=== PATIENT | male | born 1960 | race Caucasian/White ===

== ENCOUNTER 2020-05-09 13:04 | Day surgery (SDC) | payer OTHER ==
[~2020-05-09] VITALS: Ht 188 cm; Wt 136.1 kg
--- NOTE | ~2020-05-09 | O ---
[facility] [place] [address] OPERATIVE REPORT Name: GERTRUDE STOREY Room #: 150-7 [facility]..#: [id number] Admission: 05/09/20 Attend Phys: Chirag Pop MD Discharge: Date of : 58 Report #: [id number] THIS REPORT FOR: cc: ADAMS OLVERA Physician not on staff Chirag Pop MD ~ CC: Prachi OLVERA Physician staff DATE OF SERVICE: 05/09/2020 PREOPERATIVE DIAGNOSIS: Left Achilles tendon rupture from the calcaneus. POSTOPERATIVE DIAGNOSIS: Left Achilles tendon rupture from the calcaneus. PROCEDURE: Left Achilles tendon reconstruction with Melanie's deformity excision and flexor hallucis longus tendon transfer. SURGEON: Dr. Chirag Pop. DELIMER: None. ANESTHESIA: General. ESTIMATED BLOOD LOSS: Minimal. DRAINS: No drains. TOURNIQUET TIME: 47 minutes. DESCRIPTION OF PROCEDURE: The patient was brought to the operating room where he was placed under general anesthesia. Once under adequate general anesthesia, his left lower extremity was prepped and draped in a sterile manner. The extremity was elevated, exsanguinated, tourniquet placed at 300 mmHg. A posterior incision along the Achilles tendon insertion was made. This was dissected down through the soft tissue of the peritenon, which was then incised exposing the ruptured tendon off of the bone. The bone was then debrided of any osteophytes and remaining Achilles tendon tissue with a rongeur. The Melanie's deformity was then excised with a large osteotome and a rongeur as well. Dissection was carried down to the posterior leg where the flexor hallucis longus tendon was identified and subsequently incised in the fibro-osseous tunnel with a Dupage blade brought to the posterior wound. This was tagged with a 2-0 Vicryl suture. A drill for the Bio-Tenodesis screw was then placed from superior to plantar through the calcaneus and the flexor hallucis longus tendon [address] [address] OPERATIVE REPORT Name: CORDELIAGERTRUDE Room #: 150-7 [facility]#: [id number] Admission: 05/09/20 Attend Phys: Chirag Pop MD Discharge: Date of : 58 Report #: [id number] was then transferred into the calcaneus with a Jose needle and fixed into place with an 8 mm Bio-Tenodesis screw. The drills and taps for the Achilles SpeedBridge was then utilized both in the calcaneus dorsally and posteriorly, and the Achilles tendon was then brought down to the bone with the FiberTape associated with the SpeedBridge. The repair was then completed into the posterior calcaneus with the SpeedBridge anchors. Excellent repair was achieved in this manner. The wound was then irrigated copiously and closed with 2-0 Vicryl in the subcutaneous tissues and yaritza were used for the skin. The wounds were dressed with Xeroform, 4 x 4s, and sterile soft compressive dressing was placed along with a short leg cast. Tourniquet was let down at 47 minutes. Toes were pink and warm with good capillary refill. There were no complications from the procedure. The patient tolerated the procedure well and went to the recovery room without incident. By: [id number] Chirag Pop MD /nt
[~2020-05-09 13:04] MED LIST: ASA81BEC PO; COZAAR100 MG PO; FENOFIBRATE160 MG PO; GLUCOPHAGE1000 MG PO; HUMALOG100 UNIT/2 SUBQ; LANTUS SUBQ; LIPITOR40 MG PO; PROCARDIA XL60 MG PO; PROZAC20 M1 PO; TOPROL XL25 MG PO
[2020-05-09 14:15] VITALS: BP 198/110
[2020-05-09] MEDS ORDERED: PERCOCET 7.5-31 EAC1 PO (15:56)
[2020-05-09] MEDS ORDERED: ASPIRIN EC325 M1 PO (15:57)
[2020-05-09 16:14] VITALS: BP 198/110
== END 2020-05-09 16:45 | disposition home or self-care (01) ==
LOC: OR 13:04 → TBA 13:10 → OR 14:30
PROVIDERS: ATTEND Orthopaedic Surgery Foot and Ankle Surgery
DX: S86.092A Other specified injury of left Achilles tendon, initial encounter (principal); M89.8X7 Other specified disorders of bone, ankle and foot; I10 Essential (primary) hypertension; E11.9 Type 2 diabetes mellitus without complications; E78.5 Hyperlipidemia, unspecified; F32.9 Major depressive disorder, single episode, unspecified; Z98.890 Other specified postprocedural states; Z79.899 Other long term (current) drug therapy; Z87.891 Personal history of nicotine dependence; Z20.828 Contact with and (suspected) exposure to other viral communicable diseases; Z90.49 Acquired absence of other specified parts of digestive tract; Z79.4 Long term (current) use of insulin; Z79.82 Long term (current) use of aspirin; X58.XXXA Exposure to other specified factors, initial encounter; Y93.89 Activity, other specified; Y92.89 Other specified places as the place of occurrence of the external cause; Y99.8 Other external cause status
CPT/HCPCS: 50010; 50101; 50386; 50951; 51412; 52120; 56524; 56527; 57091; 57180; 57489; 58260; 62110; 62900; 70005